=== PATIENT | female | born 1960 | race Caucasian/White ===

== ENCOUNTER → 2018-08-28 | Outpatient (CLI) | payer BC ==
--- NOTE | 2018-08-28 12:33 | Diagnostic Imaging Report ---
INDICATION: Right hip pain. AP and oblique views of the right hip are obtained. No fracture or acute bony abnormality is seen. Joint spaces are unremarkable. IMPRESSION: Negative right hip. Dictated by: Dictated on workstation # [id number]
== END ==
LOC: RAD FS 11:50
PROVIDERS: ATTEND Family Medicine
DX: M25.551 Pain in right hip (principal)
CPT/HCPCS: 73502

== ENCOUNTER 2020-07-18 19:47 | Emergency (ER) | payer OTHER, BC ==
[~2020-07-18] VITALS: Ht 163 cm; Wt 84.0 kg
[2020-07-18] MEDS ORDERED: CARV3.122 (19:55)
[2020-07-18] MEDS ORDERED: PRAV20TA3 (19:55)
[2020-07-18] MEDS ORDERED: ALBUTEROL (19:55)
[2020-07-18] MEDS ORDERED: TETANUS,DIPTH,PERTUSS P/F (BOOSTRIX) 0.5 ML VIAL IM ONE (20:00)
--- NOTE | 2020-07-18 20:02 | NUR ---
WARM BLANKETS PROVIDED.
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
--- NOTE | 2020-07-18 20:11 | NUR ---
updated pt's daughter brooke [phone] per pt request.
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
[2020-07-18] MEDS ORDERED: RX-CYCLOBENZAPRINE 10 MG (FLEXERIL) TAB PPK#3 PO STA (21:10)
[2020-07-18] MEDS ORDERED: RX-NAPROXEN (NAPROSYN) 250 MG TAB PPK#4 PO STA (21:10)
[2020-07-18] MEDS ORDERED: CYCL10TA9 PO (21:11)
[2020-07-18] MEDS ORDERED: NAPR500T8 PO (21:11)
[2020-07-18 21:12] VITALS: BP 138/82
== END 2020-07-18 21:40 | disposition home or self-care (01) ==
LOC: EDUNIT# 19:47 → ER 19:48
DX: S16.1XXA Strain of muscle, fascia and tendon at neck level, initial encounter (principal); S46.912A Strain of unspecified muscle, fascia and tendon at shoulder and upper arm level, left arm, initial encounter; S70.12XA Contusion of left thigh, initial encounter; S70.11XA Contusion of right thigh, initial encounter; S70.02XA Contusion of left hip, initial encounter; S70.01XA Contusion of right hip, initial encounter; S00.31XA Abrasion of nose, initial encounter; F41.9 Anxiety disorder, unspecified; Z23 Encounter for immunization; Z88.1 Allergy status to other antibiotic agents; V59.9XXA Occupant (driver) (passenger) of pick-up truck or van injured in unspecified traffic accident, initial encounter
CPT/HCPCS: 70450; 71045; 72125; 73030; 73523; 90715

== ENCOUNTER 2021-05-20 11:00 | Outpatient (CLI) | payer BC ==
[~2021-05-20] VITALS: Ht 162.5 cm; Wt 77.2 kg
[~2021-05-20 11:00] MED LIST: ALBUTEROL; CARV3.122; CYCL10TA25 PO; NAPR500T8 PO; PRAV20TA3
[2021-05-20 11:07] VITALS: BP 125/81
[2021-05-20] MEDS ORDERED: ACETAMINOPHEN 500 MG TAB (TYLENOL) PO PRN (11:15)
[2021-05-20] MEDS ORDERED: EPINEPHrine INJECTION 1 MG/ML AMP IM PRN (11:15)
[2021-05-20] MEDS ORDERED: diphenhydrAMINE 50 MG/ML INJ (BENADRYL) IV PRN (11:15)
[2021-05-20] MEDS ORDERED: CASIRIVIMAB/IMDEVIMAB 1,200 MG in NS (IVPB) 250 ML IV ONE (11:15)
[2021-05-20] MEDS ORDERED: ONDANSETRON 4 MG/2 ML (SDV) Z0FRAN IV PRN (11:15)
[2021-05-20 12:26] VITALS: BP 125/66
== END 2021-05-20 13:17 | disposition home or self-care (01) ==
LOC: INFUSION 11:00
PROVIDERS: ATTEND Registered Nurse
DX: U07.1 COVID-19 (principal)